=== PATIENT | female | born 2000 | race Caucasian/White ===

== ENCOUNTER 2021-04-01 17:24 | Emergency (ER) | payer OTHER ==
[2021-04-01] MEDS ORDERED: Acetaminophen 500 MG Tab PO ONE (18:02)
--- NOTE | 2021-04-01 18:09 | EDM.PDOC ---
ED HPI GENERAL MEDICAL PROBLEM - General Chief Complaint: ENT Problem Stated Complaint: SORE THROAT/FEVER Time Seen by Provider: 04/01/21 17:56 Source of Information: Reports: Patient History Limitations: Reports: No Limitations - History of Present Illness INITIAL COMMENTS - FREE TEXT/NARRATIVE: 20 yo female with 2 d hx of sore throat and fever. No known exposures. No tx before arrival. Here with her mother. No rash. Minimal rhinorrhea. Onset: Gradual Onset Date: 03/30/21 Duration: Day(s): (2+), Constant Location: Reports: Neck (throat) Quality: Reports: Sharp Severity: Moderate Improves with: Reports: Medication Worsens with: Reports: Other (swallowing) Context: Reports: Other (See HPI) Associated Symptoms: Reports: Fever/Chills. Denies: Cough, Rash, Shortness of Breath Treatments ADVENTURE GUIDE: Reports: Other (see below) (none) - Related Data Allergies Allergy/AdvReac Type Severity Reaction Status Date / Time No Known Allergies Allergy Verified 04/01/21 17:52 Home Meds: Home Meds Hydrocodone/Acetaminophen [Hydrocodon-Acetaminophen 5-300] 1 each PO Q4H PRN #16 tablet 04/01/21 [Rx] Mirtazapine [Remeron] 15 mg PO BEDTIME 04/01/21 [History] Topiramate 25 mg PO BEDTIME 04/01/21 [History] norethindrone-e.estradioL-iron [Loestrin Fe 1-20 Tablet] 1 tab PO DAILY 04/01/21 [History] Past Medical History Psychiatric History: Reports: Anxiety Other Psychiatric History: insomnia, migraines - Past Surgical History HEENT Surgical History: Reports: Oral Surgery Other Musculoskeletal Surgeries/Procedures:: ulna shortened Social & Family History - Caffeine Use Caffeine Use: Reports: Coffee ED ROS ENT - Review of Systems Review Of Systems: See Below Constitutional: Reports: Fever, Chills, Malaise HEENT: Reports: Rhinitis (minimal), Throat Pain Respiratory: Reports: No Symptoms Cardiovascular: Reports: No Symptoms GI/Abdominal: Reports: No Symptoms Musculoskeletal: Reports: No Symptoms Skin: Reports: No Symptoms Neurological: Reports: No Symptoms Psychiatric: Reports: No Symptoms ED EXAM, ENT - Physical Exam Exam: See Below Exam Limited By: No Limitations General Appearance: Alert, WD/WN, No Apparent Distress Eye Exam: Bilateral Eye: Normal Inspection Ears: Normal External Exam, Normal Canal, Hearing Grossly Normal, Normal TMs Nose: Normal Inspection, No Blood Mouth/Throat: Pharyngeal Erythema, Throat Pain, Tonsillar Erythema, Tonsillar Swelling (R sided). No: Tonsillar Exudates, Uvular Deviation, Uvular Edema Head: Atraumatic, Normocephalic Neck: Normal Inspection Respiratory/Chest: No Respiratory Distress, Lungs Clear, Normal Breath Sounds, No Accessory Muscle Use Cardiovascular: Regular Rate, Rhythm, No Edema, Tachycardia Neurological: Alert, Oriented, CN II-XII Intact, Normal Cognition, No Motor/Sensory Deficits Psychiatric: Normal Affect, Normal Mood Skin: Warm, Dry, Intact, Normal Color, No Rash Course - Vital Signs Last Recorded V/S: Last Vital Signs Temp 39.1 C H 04/01/21 17:57 Pulse 112 H 04/01/21 17:57 Resp 16 04/01/21 17:57 BP 110/72 04/01/21 17:57 Pulse Ox 96 04/01/21 17:57 - Orders/Labs/Meds Orders: Active Orders 24 hr Category Date Time Status CULTURE STREP A CONFIRMATION [] Stat Lab 04/01/21 17:57 Results STREP SCRN A RAPID W CULT CONF [RM] Stat Lab 04/01/21 17:57 Results Meds: Medications Discontinued Medications Generic Name Dose Route Start Last Admin Trade Name Peteyq PRN Reason Stop Dose Admin Acetaminophen 1,000 mg 04/01/21 18:02 04/01/21 18:10 Acetaminophen 500 Mg Tab PO 04/01/21 18:03 1,000 mg ONETIME ONE Administration Departure - Departure Time of Disposition: 18:30 Disposition: Home, Self-Care 01 Condition: Fair Clinical Impression: Pharyngitis Qualifiers: Pharyngitis/tonsillitis etiology: unspecified etiology Qualified Code(s): J02.9 - Acute pharyngitis, unspecified - Discharge Information *PRESCRIPTION DRUG MONITORING PROGRAM REVIEWED*: No *COPY OF PRESCRIPTION DRUG MONITORING REPORT IN PATIENT MJ: No Prescriptions: Hydrocodone/Acetaminophen [Hydrocodon-Acetaminophen 5-300] 1 each PO Q4H PRN #16 tablet PRN Reason: Pain Referrals: PCP,None [Primary Care Provider] - Forms: ED Department Discharge Additional Instructions: Drink ample fluids and get plenty of rest. Isolate to avoid spread. Recheck if not better in 5-6 days to be tested for mono. Take ibuprofen 600 mg every 6 hrs with or without acetaminophen. Hydrocodone may be substituted for acetaminophen if more pain relief is needed. Sepsis Event Note (ED) - Evaluation Sepsis Screening Result: Possible Sepsis Risk - Focused Exam Vital Signs: Vital Signs Temp Pulse Resp BP Pulse Ox 04/01/21 17:57 39.1 C H 112 H 16 110/72 96 04/01/21 17:52 39.1 C H 112 H 16 110/72 96 - My Orders Last 24 Hours: My Active Orders 04/01/21 17:57 CULTURE STREP A CONFIRMATION [RM] Stat STREP SCRN A RAPID W CULT CONF [RM] Stat - Assessment/Plan Last 24 Hours: My Active Orders 04/01/21 17:57 CULTURE STREP A CONFIRMATION [RM] Stat STREP SCRN A RAPID W CULT CONF [RM] Stat
== END 2021-04-01 18:37 | disposition home or self-care (01) ==
LOC: JP.ED 17:24
DX: J02.9 Acute pharyngitis, unspecified (principal)
CPT/HCPCS: 87081; 87880; 99283; A9270